=== PATIENT | male | born 1950 | race Caucasian/White ===

== ENCOUNTER 2018-11-27 07:37 | Emergency (ER) | payer BC, OTHER ==
[~2018-11-27] VITALS: Ht 177.8 cm; Wt 72.1 kg
[2018-11-27 08:17] LABS: ABSOLUTE NEUTROPHILS 3.8 thou/uL (1.4-8.2); BASOPHILS 0.4 % (0.0-2.0); EOSINOPHILS 0.6 % (0.0-3.0); HEMATOCRIT 35.4 % (42.0-52.0); HEMOGLOBIN 12.3 gm/dL (14.0-18.0); LYMPHOCYTES 17.2 % (24.0-44.0); MCH 32.8 pg (26.0-34.0); MCHC 34.8 g/dL (28.0-37.0); MONOCYTES 8.2 % (1.0-8.0); PLATELET COUNT 139 thou/uL (150-400); POLYS 73.6 % (36.0-66.0); RBC 3.77 mil/uL (4.50-6.00); RDW 14.4 % (10.5-14.5); WBC 5.1 thou/uL (4.0-11.0)
[2018-11-27 08:20] LABS: POTASSIUM 3.3 mmol/L (3.5-5.1)
[2018-11-27 08:26] LABS: ALBUMIN 4.2 g/dL (3.4-5.0); TOTAL BILIRUBIN 1.4 mg/dL (<0.1-1.0); TOTAL PROTEIN 7.1 g/dL (6.4-8.2)
[2018-11-27 08:36] LABS: APTT 24.3 Seconds (24.5-32.8); INR 1.2; PROTIME 12.1 Seconds (9.3-11.4)
[2018-11-27 09:28] VITALS: BP 142/71
--- NOTE | 2018-11-29 10:48 | P ---
[facility] [place] [address] PROCEDURE REPORT Name: SARATH MONTANA Room #: [facility]P [facility] [id number] Admission: 11/27/18 Attend Phys: Discharge: 11/27/18 Date of : 50 Report #: [id number] THIS REPORT FOR: //name// CC: Negrito Deutsch DATE OF SERVICE: 11/27/2018 OUTPATIENT FLEXIBLE SIGMOIDOSCOPY BRIEF HISTORY: The patient is a 68-year-old male who presented to the Emergency Room at [facility] with rectal bleeding. The patient underwent colonoscopy yesterday and had 2 diminutive polyps removed by biopsy. There was a submucosal lesion in the distal rectum, which was biopsied. After the procedure yesterday and he informed us that he has had problems with bleeding in the past and required Amicar for control of bleeding after vein stripping many years ago. He reports he has multiple vascular lesions above his penis, scrotum and legs. In retrospect, it is possible the rectal lesion was vascular lesion, although it did not appear to be overtly vascular at the time of the procedure yesterday. PREOPERATIVE DIAGNOSIS: Rectal bleeding. POSTOPERATIVE DIAGNOSIS: Post-endoscopic biopsy of rectum with rectal bleeding. MEDICATIONS: Deep sedation with propofol per Anesthesia. SPECIMEN: None. ESTIMATED BLOOD LOSS: None related to procedure. PROCEDURE: Flexible sigmoidoscopy to 50 cm with hemostasis. FINDINGS: Prior to propofol sedation, the procedure was reviewed with the patient's as well as potential risks and its complications. He did have 2 diminutive polyps removed with biopsy forceps yesterday as well. One of them was in the proximal ascending colon. The other was in the distal ascending colon. DESCRIPTION OF PROCEDURE: We started the procedure with the Olympus therapeutic scope and advanced the scope into the rectum. The blood clot and coating mucosa with dark blood was seen. The scope was advanced about 50 cm into the left colon and there was blood all the way to this point. However, we then encountered a brown stool without blood. Beyond this area, no blood was seen. [facility] [address] [place] [address] PROCEDURE REPORT Name: SARATH MONTANA Room #: DEP [place]#: [id number] Admission: 11/27/18 Attend Phys: Discharge: 11/27/18 Date of : 50 Report #: [id number] Therefore, it was felt that the bleeding most likely came from the rectal biopsy rather than the ascending colon polyp biopsies. Upon slow withdrawal of the scope, we irrigated, lavaged and cleaned as well as possible. Not all the blood could be removed. However, much it was removed and no actively bleeding lesions were seen. The scope was withdrawn into the rectum and in particular the distal rectum was cleaned and an adherent clot was seen in the region of the biopsies yesterday. This area was carefully observed. There was a small clot remaining that would not dislodge. There was a very slight oozing from around this clot. We then withdrew the scope and fitted it with the banding device and reintroduced the scope into the rectum. The area of clot was suctioned into the banding chamber and one band was applied. We then observed this area. No further bleeding was encountered. We then withdrew the endoscope and removed the banding device and reinserted the scope and then for another minute or two watched this area very carefully. The blood had been aspirated away. No additional blood accumulated. There was no further oozing. It was felt that hemostasis had been achieved. The scope was withdrawn. The patient tolerated the procedure well. CONDITION OF THE PATIENT UPON DISCHARGE: Following procedure, the patient was drowsy and will be discharged to home when fully ambulatory. INSTRUCTIONS TO THE PATIENT AND FAMILY AT THE TIME OF DISCHARGE: The patient with bleeding after biopsy from the rectum yesterday. This may have been a vascular lesion, although it had an atypical appearance. Bleeding is controlled at this point in time. He should follow a high fiber diet and avoid constipation and straining. He is to call if he should have further problems with bleeding. Also, it is noted that his hemoglobin today was in the 12 range in the Emergency Room, <ELECTRONICALLY SIGNED> By: Gopal Patel MD 11/29/18 [id number] Gopal Patel MD /nt
== END 2018-11-27 11:31 | disposition home or self-care (01) ==
LOC: ER 07:37
PROVIDERS: Emergency Medicine
DX: K92.2 Gastrointestinal hemorrhage, unspecified (principal)
CPT/HCPCS: 62110; 62900